=== PATIENT | female | born 1980 | race Caucasian/White ===

== ENCOUNTER → 2016-06-15 | Outpatient (CLI) | payer OTHER ==
--- NOTE | 2016-06-15 08:24 | US ---
EXAMINATION TYPE: US abdomen limited DATE OF EXAM: 06/15/2016 7:20 AM COMPARISON: NONE CLINICAL HISTORY: R94.5 Abn Liver Test; Large body habitus, diabetic EXAM MEASUREMENTS: Liver Length: 20.1 cm Gallbladder Wall: 0.2 cm CBD: 0.4 cm Right Kidney: 12.4 x 6.6 x 5.1 cm Pancreas: hyperechoic Liver: enlarged and fatty (hyperechoic to right renal cortex) Gallbladder: mobile, shadowing stone = 0.8 x 0.7 x 0.6cm Evidence for sonographic Emerson's sign: No CBD: wnl Right Kidney: wnl Visualized pancreas is heterogeneous without worrisome mass or ductal dilatation. Visualized liver is heterogeneously hyperechoic without suspicious intrahepatic ductal dilatation. Evaluation for focal masses is suboptimal due to the heterogeneity. Within gallbladder technologist carrillo 7 mm hyperechoic focus that is mobile and shadowing during real-time scanning consistent with gallstone. IMPRESSION: Single gallstone without secondary ultrasound evidence for acute cholecystitis. Heterogen eity of liver is likely on basis of diffuse fatty infiltration, underlying hepatocellular disease is not excluded.
== END | disposition home or self-care (01) ==
LOC: RADUSWWP 06:55
PROVIDERS: ATTEND Internal Medicine
DX: K76.89 Other specified diseases of liver (principal); K80.20 Calculus of gallbladder without cholecystitis without obstruction
CPT/HCPCS: 76705

== ENCOUNTER → 2018-06-13 | Outpatient (CLI) | payer OTHER ==
[2018-06-13 16:44] LABS: Anion Gap 10.9 mmol/L (4.00-12.00); Calcium 8.6 mg/dL (8.7-10.3); Carbon Dioxide 27.1 mmol/L (21.6-31.8); Potassium 4.1 mmol/L (3.5-5.5)
[2018-06-13 18:05] LABS: Hemoglobin A1C 9.5 % (4.0-6.0)
== END | disposition home or self-care (01) ==
LOC: LABWHC1 10:25
PROVIDERS: ATTEND Internal Medicine
DX: E11.9 Type 2 diabetes mellitus without complications (principal); I10 Essential (primary) hypertension; K21.9 Gastro-esophageal reflux disease without esophagitis
CPT/HCPCS: 36415; 80048; 83036

== ENCOUNTER → 2018-10-16 | Outpatient (CLI) | payer OTHER ==
[2018-10-16 11:57] LABS: Ionized Calcium 4.8 mg/dL (4.5-5.3)
[2018-10-16 12:19] LABS: Anisocytosis Slight; Basophils % (A) 0 %; Eosinophils # (A) 0.2 k/uL (0-0.7); Eosinophils % (A) 2 %; HCT 30.9 % (34.0-46.0); HGB 9.1 gm/dL (11.4-16.0); Hypochromasia Marked; Lymphocytes # (A) 2.2 k/uL (1.0-4.8); Lymphocytes % (A) 24 %; MCH 19.4 pg (25.0-35.0); MCHC 29.5 g/dL (31.0-37.0); Mean Platelet Volume 6.6; Microcytosis Marked; Monocytes # (A) 0.4 k/uL (0-1.0); Monocytes % (A) 4 %; Neutrophils # (A) 6.2 k/uL (1.3-7.7); Neutrophils % (A) 67 %; Platelet Count 408 k/uL (150-450); Poikilocytosis Slight; RBC 4.68 m/uL (3.80-5.40); RDW 17.3 % (11.5-15.5); WBC 9.1 k/uL (3.8-10.6)
[2018-10-16 16:03] LABS: T4, Free (Free Thyroxine) 1.1 ng/dL (0.80-1.80)
[2018-10-16 17:59] LABS: Iron Saturation 4.39 (12.00-45.00)
[2018-10-16 18:49] LABS: Hemoglobin A1C 7.7 % (4.0-6.0)
== END | disposition home or self-care (01) ==
LOC: LABWHC1 10:51
PROVIDERS: ATTEND Internal Medicine
DX: E11.9 Type 2 diabetes mellitus without complications (principal); E66.9 Obesity, unspecified; D64.9 Anemia, unspecified; R53.83 Other fatigue
CPT/HCPCS: 36415; 82330; 82607; 83036; 83540; 83550; 84439; 84443; 84481; 85025

== ENCOUNTER → 2019-09-09 | Outpatient (CLI) | payer OTHER ==
[2019-09-09 13:28] LABS: HCT 35.2 % (34.0-46.0); HGB 10.8 gm/dL (11.4-16.0); Hypochromasia Marked; MCH 23.4 pg (25.0-35.0); MCHC 30.8 g/dL (31.0-37.0); MCV 76.1 fL (80.0-100.0); Mean Platelet Volume 8.3; Microcytosis Slight; Platelet Count 357 k/uL (150-450); RBC 4.63 m/uL (3.80-5.40); RDW 15.7 % (11.5-15.5); WBC 9.3 k/uL (3.8-10.6)
[2019-09-09 18:57] LABS: % Iron Saturation 10.56 (12.00-45.00); African American GFR (CKD) 124.7 (60.0-200.0); Albumin 4.5 g/dL (3.80-4.90); Albumin/Globulin Ratio 2.05 (1.60-3.17); BUN/Creat Ratio 17.14 Ratio (12.00-20.00); Calcium 9.8 mg/dL (8.7-10.3); Globulin 2.2 g/dL (1.6-3.3); Non-African American GFR(CKD) 107.6 (60.0-200.0); Potassium 4.8 mmol/L (3.5-5.5); Total Bilirubin 0.2 mg/dL (0.2-1.2); Total Protein 6.7 g/dL (6.2-8.2)
[2019-09-09 19:04] LABS: T4, Free (Free Thyroxine) 1.2 ng/dL (0.80-1.80)
[2019-09-09 22:48] LABS: Hemoglobin A1C 7.3 % (4.0-6.0)
== END | disposition home or self-care (01) ==
LOC: LABWHC1 12:11
PROVIDERS: ATTEND Internal Medicine
DX: E11.9 Type 2 diabetes mellitus without complications (principal); R53.83 Other fatigue
CPT/HCPCS: 36415; 80053; 82607; 83036; 83540; 83550; 84439; 84443; 85027

== ENCOUNTER 2020-06-06 18:18 | Inpatient (IN) | payer OTHER ==
[2020-06-06] MEDS ORDERED: LORazepam 2 MG/ML INJ IV STA (19:54)
[2020-06-06] MEDS ORDERED: SODIUM CHLORIDE 0.9% 1,000 ML IV STA (19:54)
--- NOTE | 2020-06-06 20:04 | ED ---
SOB HPI - General Chief Complaint: Shortness of Breath Stated Complaint: Covid+, SOB Time Seen by Provider: 06/06/20 19:47 Source: patient, RN notes reviewed Mode of arrival: ambulatory Limitations: no limitations - History of Present Illness Initial Comments: This is a 40-year-old female presents emergency Department with shortness breath. Patient states she initially tested positive for Covid on 05/11/2020. Patient states she was still positive for a trip thousand 21. Patient states she's had progressive shortness of breath, chest tightness. Patient had fever or chills body aches. Patient has known diabetic on oral medications along with insulin. Patient also takes lisinopril 5 mg for hypertension, Just prior arrival. She states she's had progressive symptoms. No history of PE DVT. - Related Data Home Medications Medication Instructions Recorded Confirmed ARIPiprazole [Abilify] 5 mg PO DAILY 06/06/20 06/06/20 Ferrous Sulfate [Iron (65 MG 325 mg PO DAILY 06/06/20 06/06/20 Elemental)] Insulin Glargine,Hum.rec.anlog 80 unit SQ HS 06/06/20 06/06/20 [Lantus Solostar] Multivitamins, Thera [Multivitamin 2 tab PO DAILY 06/06/20 06/06/20 (formulary)] PARoxetine HCL [Paxil] 20 mg PO DAILY 06/06/20 06/06/20 PARoxetine HCL [Paxil] 40 mg PO DAILY 06/06/20 06/06/20 Pantoprazole [Protonix] 40 mg PO HS 06/06/20 06/06/20 cloNIDine HCL [Catapres] 0.1 mg PO HS PRN 06/06/20 06/06/20 lisinopriL [Zestril] 5 mg PO HS 06/06/20 06/06/20 metFORMIN HCL [Glucophage] 1,000 mg PO BID-W/MEALS 06/06/20 06/06/20 Allergies Allergy/AdvReac Type Severity Reaction Status Date / Time amoxicillin AdvReac Rash/Hives Verified 06/06/20 22:04 Review of Systems ROS Statement: Those systems with pertinent positive or pertinent negative responses have been documented in the HPI. ROS Other: All systems not noted in ROS Statement are negative. Past Medical History Past Medical History: Diabetes Mellitus, Hypertension History of Any Multi-Drug Resistant Organisms: None Reported Past Surgical History: Section Past Psychological History: Anxiety, Depression Smoking Status: Never smoker Past Alcohol Use History: None Reported Past Drug Use History: None Reported General Exam Limitations: no limitations General appearance: alert, in no apparent distress Head exam: Present: atraumatic, normocephalic, normal inspection Eye exam: Present: normal appearance, PERRL, EOMI. Absent: scleral icterus, conjunctival injection, periorbital swelling ENT exam: Present: normal exam, mucous membranes moist Neck exam: Present: full ROM. Absent: tenderness, meningismus, lymphadenopathy Respiratory exam: Present: normal lung sounds bilaterally. Absent: respiratory distress, wheezes, rales, rhonchi, stridor Cardiovascular Exam: Present: normal rhythm, tachycardia, normal heart sounds. Absent: systolic murmur, diastolic murmur, rubs, gallop, clicks GI/Abdominal exam: Present: soft, normal bowel sounds. Absent: distended, tenderness, guarding, rebound, rigid Neurological exam: Present: alert, oriented X3 Skin exam: Present: warm, dry, intact, normal color. Absent: rash Course Vital Signs 06/06/20 06/06/20 06/06/20 19:03 19:52 20:00 Temperature 98.5 F Pulse Rate 146 H 144 H 142 H Respiratory 24 26 H Rate Blood Pressure 162/107 199/127 199/127 O2 Sat by Pulse 93 L 96 95 Oximetry 06/06/20 06/06/20 06/06/20 20:30 21:00 21:30 Temperature Pulse Rate 135 H 135 H 138 H Respiratory Rate Blood Pressure 199/127 199/127 199/127 O2 Sat by Pulse 94 L 93 L 93 L Oximetry 06/06/20 21:45 Temperature Pulse Rate Respiratory Rate Blood Pressure 190/121 O2 Sat by Pulse Oximetry Medical Decision Making - Medical Decision Making 40-year-old female presented emergency department who shortness of breath. Patient had recent Covid. CT is negative for PE but does show bilateral infiltrates. Patient is persistently tachycardic, tachypneic and hypertensive. Patient was given multiple rounds of pain along blood pressures improving heart rate still tachycardic. Patient will be admitted for further evaluation. - Lab Data Result diagrams: 06/06/20 20:04 06/06/20 20:04 Lab Results 06/06/20 06/06/20 06/06/20 Range/Units 20:04 20:04 20:04 WBC 10.6 (3.8-10.6) k/uL RBC 4.65 (3.80-5.40) m/uL Hgb 10.4 L (11.4-16.0) gm/dL Hct 34.6 (34.0-46.0) % MCV 74.4 L (80.0-100.0) fL MCH 22.4 L (25.0-35.0) pg MCHC 30.1 L (31.0-37.0) g/dL RDW 17.6 H (11.5-15.5) % Plt Count 334 (150-450) k/uL MPV 7.5 Neutrophils % 80 % Lymphocytes % 13 % Monocytes % 4 % Eosinophils % 2 % Basophils % 0 % Neutrophils # 8.4 H (1.3-7.7) k/uL Lymphocytes # 1.4 (1.0-4.8) k/uL Monocytes # 0.4 (0-1.0) k/uL Eosinophils # 0.2 (0-0.7) k/uL Basophils # 0.0 (0-0.2) k/uL Hypochromasia Marked Poikilocytosis Slight Anisocytosis Slight Microcytosis Moderate PT 10.0 (9.0-12.0) sec INR 0.9 (<1.2) APTT 21.1 L (22.0-30.0) sec D-Dimer 1.07 H (<0.60) mg/L FEU Sodium 136 L (137-145) mmol/L Potassium 4.9 (3.5-5.1) mmol/L Chloride 100 (98-107) mmol/L Carbon Dioxide 29 (22-30) mmol/L Anion Gap 7 mmol/L BUN 13 (7-17) mg/dL Creatinine 0.62 (0.52-1.04) mg/dL Est GFR (CKD-EPI)AfAm >90 (>60 ml/min/1.73 sqM) Est GFR (CKD-EPI)NonAf >90 (>60 ml/min/1.73 sqM) Glucose 203 H (74-99) mg/dL Lactic Ac Sepsis Rflx Plasma Lactic Acid Murtaza (0.7-2.0) mmol/L Calcium 9.6 (8.4-10.2) mg/dL Magnesium 1.2 L (1.6-2.3) mg/dL Total Bilirubin 0.4 (0.2-1.3) mg/dL AST 21 (14-36) U/L ALT 12 (4-34) U/L Alkaline Phosphatase 81 (38-126) U/L Troponin I (0.000-0.034) ng/mL NT-Pro-B Natriuret Pep pg/mL Total Protein 6.4 (6.3-8.2) g/dL Albumin 3.9 (3.5-5.0) g/dL 06/06/20 06/06/20 06/06/20 Range/Units 20:04 20:04 20:04 WBC (3.8-10.6) k/uL RBC (3.80-5.40) m/uL Hgb (11.4-16.0) gm/dL Hct (34.0-46.0) % MCV (80.0-100.0) fL MCH (25.0-35.0) pg MCHC (31.0-37.0) g/dL RDW (11.5-15.5) % Plt Count (150-450) k/uL MPV Neutrophils % % Lymphocytes % % Monocytes % % Eosinophils % % Basophils % % Neutrophils # (1.3-7.7) k/uL Lymphocytes # (1.0-4.8) k/uL Monocytes # (0-1.0) k/uL Eosinophils # (0-0.7) k/uL Basophils # (0-0.2) k/uL Hypochromasia Poikilocytosis Anisocytosis Microcytosis PT (9.0-12.0) sec INR (<1.2) APTT (22.0-30.0) sec D-Dimer (<0.60) mg/L FEU Sodium (137-145) mmol/L Potassium (3.5-5.1) mmol/L Chloride (98-107) mmol/L Carbon Dioxide (22-30) mmol/L Anion Gap mmol/L BUN (7-17) mg/dL Creatinine (0.52-1.04) mg/dL Est GFR (CKD-EPI)AfAm (>60 ml/min/1.73 sqM) Est GFR (CKD-EPI)NonAf (>60 ml/min/1.73 sqM) Glucose (74-99) mg/dL Lactic Ac Sepsis Rflx Plasma Lactic Acid Murtaza 2.5 H* (0.7-2.0) mmol/L Calcium (8.4-10.2) mg/dL Magnesium (1.6-2.3) mg/dL Total Bilirubin (0.2-1.3) mg/dL AST (14-36) U/L ALT (4-34) U/L Alkaline Phosphatase (38-126) U/L Troponin I <0.012 (0.000-0.034) ng/mL NT-Pro-B Natriuret Pep 625 pg/mL Total Protein (6.3-8.2) g/dL Albumin (3.5-5.0) g/dL 06/06/20 Range/Units 20:26 WBC (3.8-10.6) k/uL RBC (3.80-5.40) m/uL Hgb (11.4-16.0) gm/dL Hct (34.0-46.0) % MCV (80.0-100.0) fL MCH (25.0-35.0) pg MCHC (31.0-37.0) g/dL RDW (11.5-15.5) % Plt Count (150-450) k/uL MPV Neutrophils % % Lymphocytes % % Monocytes % % Eosinophils % % Basophils % % Neutrophils # (1.3-7.7) k/uL Lymphocytes # (1.0-4.8) k/uL Monocytes # (0-1.0) k/uL Eosinophils # (0-0.7) k/uL Basophils # (0-0.2) k/uL Hypochromasia Poikilocytosis Anisocytosis Microcytosis PT (9.0-12.0) sec INR (<1.2) APTT (22.0-30.0) sec D-Dimer (<0.60) mg/L FEU Sodium (137-145) mmol/L Potassium (3.5-5.1) mmol/L Chloride (98-107) mmol/L Carbon Dioxide (22-30) mmol/L Anion Gap mmol/L BUN (7-17) mg/dL Creatinine (0.52-1.04) mg/dL Est GFR (CKD-EPI)AfAm (>60 ml/min/1.73 sqM) Est GFR (CKD-EPI)NonAf (>60 ml/min/1.73 sqM) Glucose (74-99) mg/dL Lactic Ac Sepsis Rflx Y Plasma Lactic Acid Murtaza (0.7-2.0) mmol/L Calcium (8.4-10.2) mg/dL Magnesium (1.6-2.3) mg/dL Total Bilirubin (0.2-1.3) mg/dL AST (14-36) U/L ALT (4-34) U/L Alkaline Phosphatase (38-126) U/L Troponin I (0.000-0.034) ng/mL NT-Pro-B Natriuret Pep pg/mL Total Protein (6.3-8.2) g/dL Albumin (3.5-5.0) g/dL - EKG Data -: EKG Interpreted by Me EKG Comments: EKG #19:16 sinus tachycardia rate of 137 MA 128 QRS 86 QT/QTC 370/558 Disposition Clinical Impression: Dyspnea, Pneumonia due to COVID-19 virus, Tachycardia with hypertension Disposition: ADMITTED IP TO THIS HOSP Condition: Fair Referrals: Manish Light MD [Primary Care Provider] - 1-2 days
[2020-06-06 20:14] LABS: Anisocytosis Slight; Basophils % (A) 0 %; Eosinophils # (A) 0.2 k/uL (0-0.7); Eosinophils % (A) 2 %; HCT 34.6 % (34.0-46.0); HGB 10.4 gm/dL (11.4-16.0); Hypochromasia Marked; Lymphocytes # (A) 1.4 k/uL (1.0-4.8); Lymphocytes % (A) 13 %; MCH 22.4 pg (25.0-35.0); MCHC 30.1 g/dL (31.0-37.0); MCV 74.4 fL (80.0-100.0); Mean Platelet Volume 7.5; Microcytosis Moderate; Monocytes # (A) 0.4 k/uL (0-1.0); Monocytes % (A) 4 %; Neutrophils # (A) 8.4 k/uL (1.3-7.7); Neutrophils % (A) 80 %; Platelet Count 334 k/uL (150-450); Poikilocytosis Slight; RBC 4.65 m/uL (3.80-5.40); RDW 17.6 % (11.5-15.5); WBC 10.6 k/uL (3.8-10.6)
[2020-06-06 20:22] LABS: ALT 12 U/L (4-34); AST 21 U/L (14-36); African American GFR (CKD) >90 (>60 ml/min/1.73 sqM); Albumin 3.9 g/dL (3.5-5.0); Alkaline Phosphatase 81 U/L (38-126); Anion Gap 7 mmol/L; Blood Urea Nitrogen 13 mg/dL (7-17); Calcium 9.6 mg/dL (8.4-10.2); Carbon Dioxide 29 mmol/L (22-30); Chloride 100 mmol/L (98-107); Glucose 203 mg/dL (74-99); Magnesium 1.2 mg/dL (1.6-2.3); Non-African American GFR(CKD) >90 (>60 ml/min/1.73 sqM); Potassium 4.9 mmol/L (3.5-5.1); Sodium 136 mmol/L (137-145); Total Bilirubin 0.4 mg/dL (0.2-1.3); Total Protein 6.4 g/dL (6.3-8.2)
[2020-06-06 20:59] LABS: INR 0.9 (<1.2)
[2020-06-06 21:38] LABS: D-Dimer 1.07 mg/L FEU (<0.60); Partial Thromboplastin Time 21.1 sec (22.0-30.0)
--- NOTE | 2020-06-06 21:54 | XR ---
EXAMINATION TYPE: XR chest 2V DATE OF EXAM: 06/06/2020 CLINICAL HISTORY: shortness of breath. TECHNIQUE: Frontal and lateral view of the chest. COMPARISON: None FINDINGS: Cardiomegaly. Diffuse multifocal hazy opacities of the bilateral lungs. No pleural effusion or pneumothorax seen. Degenerative changes of the spine.. IMPRESSION: Cardiomegaly. Diffuse multifocal hazy airspace opacities may represent interstitial smita a versus atypical pneumonitis including Covid 19.
[2020-06-06] MEDS ORDERED: LABETALOL 5 MG/ML VIAL MDV IVP STA ×3 (22:16→22:36)
--- NOTE | 2020-06-06 22:27 | CT ---
EXAMINATION TYPE: CT chest angio for PE DATE OF EXAM: 06/06/2020 COMPARISON: None HISTORY: SOB, elevated d-dimer, +covid CT DLP: 975 mGycm Automated exposure control for dose reduction was used. CONTRAST: Performed with IV Contrast, patient injected with 100 mL of Isovue 370. Images obtained from the thoracic inlet to the diaphragm with IV contrast. There are 3-D post process ed images. There is patchy pulmonary interstitial and to a lesser extent airspace infiltrates bilaterally. Heart appears enlarged. There is no pericardial effusion. There is no pleural effusion. There is some fatt y infiltration of the liver. There are no hilar masses. There is no evidence of aortic aneurysm or dissection. There are mediastin al multiple lymph nodes that measure up to 1.5 cm in the paratracheal region. These are likely inflam matory. I see no evidence of filling defect in the pulmonary arteries. The thoracic spine is intact. There is no compression fracture. I see no bony destructive process. IMPRESSION: No evidence of pulmonary embolism. Pulmonary interstitial and airspace bilateral infiltrates with cardiomegaly. No pleural fluid seen to suggest heart failure.
[2020-06-06] MEDS ORDERED: ONDANSETRON 4 MG/2 ML VIAL IVP PRN (22:43)
[2020-06-06] MEDS ORDERED: NALOXONE 0.4 MG/ML 1 ML VIAL IV PRN (22:43)
[2020-06-06] MEDS ORDERED: LABETALOL 5 MG/ML VIAL MDV IVP PRN (22:44)
[2020-06-06] MEDS: SODIUM CHLORIDE 0.9% 1,000 ML IV SCH (22:47)
[2020-06-07] MEDS ORDERED: LABETALOL 5 MG/ML VIAL MDV IVP STA (00:59)
[2020-06-07] MEDS: INSULIN ASPART (NovoLOG) 100 UNIT/ML VIAL SQ SCH ×4 (07:30→20:37)
[2020-06-07 07:56] LABS: Glucose,Whole Blood 111 mg/dL (75-99)
[2020-06-07] MEDS ORDERED: cloNIDine HCL 0.1 MG TAB PO PRN (08:17)
[2020-06-07] MEDS ORDERED: hydrALAZINE HCL 25 MG TAB PO PRN (10:26)
[2020-06-07 10:28] LABS: Anisocytosis Slight; Basophils % (A) 0 %; Eosinophils # (A) 0.2 k/uL (0-0.7); Eosinophils % (A) 2 %; HCT 30.4 % (34.0-46.0); HGB 9.8 gm/dL (11.4-16.0); Hypochromasia Moderate; Lymphocytes # (A) 1.9 k/uL (1.0-4.8); Lymphocytes % (A) 20 %; MCH 23.7 pg (25.0-35.0); MCHC 32.3 g/dL (31.0-37.0); MCV 73.5 fL (80.0-100.0); Mean Platelet Volume 7.1; Microcytosis Moderate; Monocytes # (A) 0.4 k/uL (0-1.0); Monocytes % (A) 5 %; Neutrophils # (A) 6.7 k/uL (1.3-7.7); Neutrophils % (A) 72 %; Platelet Count 264 k/uL (150-450); Poikilocytosis Slight; RBC 4.13 m/uL (3.80-5.40); RDW 17.8 % (11.5-15.5); WBC 9.3 k/uL (3.8-10.6)
[2020-06-07] MEDS ORDERED: metFORMIN 500 MG TAB PO SCH (10:30)
[2020-06-07] MEDS: PARoxetine 20 MG TAB PO SCH ×2 (10:52→10:53)
[2020-06-07] MEDS: FERROUS SULFATE 325 MG TAB PO SCH (10:53)
[2020-06-07] MEDS: MULTIVITAMINS, THERA 1 EACH TAB PO SCH (10:53)
[2020-06-07] MEDS ORDERED: lisinopriL 5 MG TAB PO STA (10:54)
[2020-06-07 11:00] LABS: African American GFR (CKD) >90 (>60 ml/min/1.73 sqM); Anion Gap 7 mmol/L; Blood Urea Nitrogen 12 mg/dL (7-17); C Reactive Protein 4.2 mg/dL (<1.0); Carbon Dioxide 26 mmol/L (22-30); Chloride 101 mmol/L (98-107); Glucose 154 mg/dL (74-99); LDH 304 U/L (313-618); Magnesium 1.3 mg/dL (1.6-2.3); Non-African American GFR(CKD) >90 (>60 ml/min/1.73 sqM); Potassium 4.3 mmol/L (3.5-5.1); Sodium 134 mmol/L (137-145)
[2020-06-07] MEDS ORDERED: Magnesium Replacement Protocol 1 EACH MISC MISCELLANE PRN (11:22)
--- NOTE | 2020-06-07 11:26 | P.HPIM ---
History of Present Illness This is a pleasant 40 years old female with past medical history of diabetes mellitus, hypertension. She is a patient of Dr. Cesar, she follows up with see him in [place] for her mental health. She presents because of dyspnea especially with exertion and walking for the last 1 week associated with a dry cough and more nasal congestion and sneezing but no sore throat. She denies chest pain, she also complaining of from diarrhea about 4-5 times last night, bowel movement was soft but not watery. No nausea vomiting, no abdominal pain but she has low appetite She denies any urinary symptoms. No dysuria, no urgency or hesitancy. Patient states she was tested positive for covid, 05/11 and 05/26 .she denies a smoking, alcohol or illicit drug She feels some snugness but denies suicidal or homicidal ideation. Patient is tachycardic 106-112, tachypneic 22-26, blood pressure is a stable and she is saturating 94% on 2 L oxygen via nasal cannula. Patient is afebrile. On presentation her blood pressure was elevated 199/127 CBC is unremarkable except for mild anemia with hemoglobin 10.4, INR is 0.9, d- dimer is mildly elevated at 1.0. BMP and liver enzymes are unremarkable, but is a small 1.2, troponin is negative less than 0.012. ProBNP is 625. EKG showing sinus tachycardia at [address]-T changes and QTC is 558. CTA of the chest: No pulmonary embolism, bilateral interstitial pulmonary disease In the emergency room patient was started on normal saline at 75 mL/h and she received several doses of labetalol 200 mg. Senior Medical Director has been consulted from emergency room Review of Systems CONSTITUTIONAL: No fever, no malaise, no fatigue. HEENT: No recent visual problems or hearing problems. Denied any sore throat. CARDIOVASCULAR: No orthopnea, PND, no palpitations, no syncope. PULMONARY: No chest wall tenderness, no hemoptysis. GASTROINTESTINAL: No diarrhea, no nausea, no vomiting, no abdominal pain. Normoactive bowel sounds. NEUROLOGICAL: No headaches, no weakness, no numbness. HEMATOLOGICAL: Denies any bleeding or petechiae. GENITOURINARY: Denies any burning micturition, frequency, or urgency. MUSCULOSKELETAL/RHEUMATOLOGICAL: Denies any joint pain, swelling, or any muscle pain. ENDOCRINE: Denies any polyuria or polydipsia. Past Medical History Past Medical History: Diabetes Mellitus, Hypertension History of Any Multi-Drug Resistant Organisms: None Reported Past Surgical History: Section Past Psychological History: Anxiety, Depression Smoking Status: Never smoker Past Alcohol Use History: None Reported Past Drug Use History: None Reported Medications and Allergies Home Medications Medication Instructions Recorded Confirmed Type ARIPiprazole [Abilify] 5 mg PO DAILY 06/06/20 06/06/20 History Ferrous Sulfate [Iron (65 MG 325 mg PO DAILY 06/06/20 06/06/20 History Elemental)] Insulin Glargine,Hum.rec.anlog 80 unit SQ HS 06/06/20 06/06/20 History [Lantus Solostar] Multivitamins, Thera [Multivitamin 2 tab PO DAILY 06/06/20 06/06/20 History (formulary)] PARoxetine HCL [Paxil] 20 mg PO DAILY 06/06/20 06/06/20 History PARoxetine HCL [Paxil] 40 mg PO DAILY 06/06/20 06/06/20 History Pantoprazole [Protonix] 40 mg PO HS 06/06/20 06/06/20 History cloNIDine HCL [Catapres] 0.1 mg PO HS PRN 06/06/20 06/06/20 History lisinopriL [Zestril] 5 mg PO HS 06/06/20 06/06/20 History metFORMIN HCL [Glucophage] 1,000 mg PO BID-W/MEALS 06/06/20 06/06/20 History Allergies Allergy/AdvReac Type Severity Reaction Status Date / Time amoxicillin AdvReac Rash/Hives Verified 06/06/20 22:04 Physical Exam Vitals: Vital Signs Temp Pulse Pulse Resp BP Pulse Ox 06/07/20 07:32 107 H 06/07/20 07:23 106 H 22 139/96 94 L 06/07/20 06:48 97.4 F L 112 H 26 H 161/122 93 L 06/07/20 02:30 112 H 06/07/20 02:00 114 H 150/83 06/07/20 01:30 111 H 185/117 06/07/20 01:00 120 H 184/115 06/07/20 00:30 120 H 143/100 06/07/20 00:00 120 H 181/110 06/06/20 23:30 121 H 146/111 06/06/20 23:22 118 H 146/111 06/06/20 23:00 197/112 06/06/20 22:30 122 H 181/108 92 L 06/06/20 22:00 138 H 190/121 93 L 06/06/20 21:45 190/121 06/06/20 21:30 138 H 199/127 93 L 06/06/20 21:00 135 H 199/127 93 L 06/06/20 20:30 135 H 199/127 94 L 06/06/20 20:00 142 H 199/127 95 06/06/20 19:52 144 H 26 H 199/127 96 06/06/20 19:03 98.5 F 146 H 24 162/107 93 L Intake and Output 06/06/20 06/07/20 06/07/20 22:59 06:59 14:59 Other: Weight 113.398 kg -GENERAL: The patient is alert and oriented x3, not in any acute distress. obese HEENT: Pupils are round and equally reacting to light. EOMI. No scleral icterus. No conjunctival pallor. Normocephalic, atraumatic. No pharyngeal erythema. No thyromegaly. CARDIOVASCULAR: S1 and S2 present. No murmurs, rubs, or gallops. PULMONARY: Chest is clear to auscultation, no wheezing or crackles. ABDOMEN: Soft, nontender, nondistended, normoactive bowel sounds. No palpable organomegaly. MUSCULOSKELETAL: No joint swelling or deformity. EXTREMITIES: No cyanosis, clubbing, or pedal edema. NEUROLOGICAL: Gross neurological examination did not reveal any focal deficits. SKIN: No rashes. No petechiae Results CBC & Chem 7: 06/07/20 10:04 06/07/20 10:04 Labs: Abnormal Lab Results - Last 24 Hours (Table) 06/06/20 06/06/20 06/06/20 Range/Units 20:04 20:04 20:04 Hgb 10.4 L (11.4-16.0) gm/dL MCV 74.4 L (80.0-100.0) fL MCH 22.4 L (25.0-35.0) pg MCHC 30.1 L (31.0-37.0) g/dL RDW 17.6 H (11.5-15.5) % Neutrophils # 8.4 H (1.3-7.7) k/uL APTT 21.1 L (22.0-30.0) sec D-Dimer 1.07 H (<0.60) mg/L FEU Sodium 136 L (137-145) mmol/L Glucose 203 H (74-99) mg/dL POC Glucose (mg/dL) (75-99) mg/dL Plasma Lactic Acid Murtaza (0.7-2.0) mmol/L Magnesium 1.2 L (1.6-2.3) mg/dL 06/06/20 06/06/20 06/07/20 Range/Units 20:04 23:15 07:29 Hgb (11.4-16.0) gm/dL MCV (80.0-100.0) fL MCH (25.0-35.0) pg MCHC (31.0-37.0) g/dL RDW (11.5-15.5) % Neutrophils # (1.3-7.7) k/uL APTT (22.0-30.0) sec D-Dimer (<0.60) mg/L FEU Sodium (137-145) mmol/L Glucose (74-99) mg/dL POC Glucose (mg/dL) 111 H (75-99) mg/dL Plasma Lactic Acid Murtaza 2.5 H* 3.7 H* (0.7-2.0) mmol/L Magnesium (1.6-2.3) mg/dL Assessment and Plan Assessment: acute Bilateral interstitial pneumonia, mostly secondary to acute covid pneumonia Acute hypoxic respiratory failure Hypertension, with urgency . Present on admission Diabetes Mellitus, type II Morbid obesity with BMI of 44.3 Plan: Is a pleasant 40 years old female who presents with bilateral Covid pneumonia and hypertension urgency, continue with current antihypertensive medication, hydralazine as needed, cardiology consult. Pulmonary consult Labs and medication were reviewed.. Continue same treatment. Continue with symptomatic treatment. Resume home medication. Monitor lytes and vitals. DVT and GI prophylaxis. Further recommendations depends on the clinical course of the patient DVT prophylaxis: Subcutaneous Lovenox GI Prophylaxis: Pepcid Prognosis is guarded
[2020-06-07 11:40] LABS: HCG,Qualitative Serum Not Detected
[2020-06-07] MEDS: ARIPiprazole 5 MG TAB PO SCH (11:50)
[2020-06-07] MEDS: METOPROLOL TARTRATE 50 MG TAB PO SCH ×2 (11:50→20:30)
--- NOTE | 2020-06-07 11:52 | P.CRDCN ---
History of Present Illness Consult date: 06/07/20 History of present illness: HISTORY OF PRESENT ILLNESS: This is a 40-year-old female with a past medical history significant for hypertension, diabetes, anxiety and depression. Patient does not follow with a roller hand. We have been asked to see the patient in consultation for tachycardia and hypertension. Patient examined at the bedside in the emergency room. Patient states she has been feeling short of breath for approximately one week. She also reports having a cough for the past week. She denies having a fever but she does report having chills the other day. Patient states yesterday when she was walking to the bathroom or shortness of breath got worse which propped her to come to the emergency room. She denies chest pain or pressure. She does report some discomfort with deep breathing. Patient's blood pressure was noted to be elevated upon arrival to the emergency room with a systolic in the 190s. Patient was also tachycardic with a heart rate in the 140s. Patient is prescribed lisinopril on an outpatient basis. She is also prescribed clonidine which she states she uses most nights out of the week to help her sl eep. Patient does not check her blood pressure at home. She denies any history of smoking or alcohol use. She denies a family history of coronary artery disease. EKG reveals sinus tachycardia with no signs of acute ischemia Chest xray cardiomegaly. Diffuse multifocal hazy airspace opacities may represent interstitial edema versus atypical pneumonitis Laboratory data: WBC 9.3. Hemoglobin 9.8. Platelet count 264. Sodium 134. Potassium 4.3. BUN 12. Creatinine 0.59. Lactic acid 3.7. Repeat 1.7. Troponin negative 1. Current home cardiac medications include lisinopril 5 mg at night REVIEW OF SYSTEMS: At the time of my exam: CONSTITUTIONAL: Denies fever or chills. HEENT: Denies blurred vision, vision changes, or eye pain. Denies hemoptysis CARDIOVASCULAR: Denies chest pain. Denies orthopnea. Denies PND. Denies palpitations RESPIRATORY: Reports shortness of breath. Reports discomfort with deep inspiration. GASTROINTESTINAL: Denies abdominal pain. Denies nausea or vomiting. HEMATOLOGIC: Denies bleeding disorders. GENITOURINARY: Denies any blood in urine. SKIN: Denies pruitis. Denies rash. PHYSICAL EXAM: VITAL SIGNS: Reviewed. GENERAL: Well-developed in no acute distress. HEENT: Head is normocephalic. Pupils are equal, round. Sclerae anicteric. Mucous membranes of the mouth are moist. Neck supple. No JVD or thyromegaly LUNGS: Respirations even and unlabored. Lungs diminished bilaterally. HEART: Tachycardic. Regular rate and rhythm. S1 and S2 heard. ABDOMEN: Soft. Nondistended. Nontender. EXTREMITIES: Normal range of motion. No clubbing or cyanosis. Peripheral pulses intact. No lower extremity edema NEUROLOGIC: Awake and alert. Oriented x 3. ASSESSMENT: Covid 19 Shortness of breath, secondary to above Tachycardia Hypertension Diabetes Mellitus Anxiety Depression PLAN: Obtain 2-D echo to assess cardiac structure and function Tachycardia and hypertension likely related to acute illness of Covid 19 and anxiety Begin metoprolol 50mg PO BID Give 5mg lisinopril now. Patient to receive 5mg tonight. Then will begin lisinopril 10mg at HS starting 06/08/2020 Further recommendations pending patient course Nurse practitioner note has been reviewed by physician. Signing provider agrees with the documented findings, assessment, and plan of care. Past Medical History Past Medical History: Diabetes Mellitus, Hypertension History of Any Multi-Drug Resistant Organisms: None Reported Past Surgical History: Section Past Psychological History: Anxiety, Depression Smoking Status: Never smoker Past Alcohol Use History: None Reported Past Drug Use History: None Reported Medications and Allergies Home Medications Medication Instructions Recorded Confirmed Type ARIPiprazole [Abilify] 5 mg PO DAILY 06/06/20 06/06/20 History Ferrous Sulfate [Iron (65 MG 325 mg PO DAILY 06/06/20 06/06/20 History Elemental)] Insulin Glargine,Hum.rec.anlog 80 unit SQ HS 06/06/20 06/06/20 History [Lantus Solostar] Multivitamins, Thera [Multivitamin 2 tab PO DAILY 06/06/20 06/06/20 History (formulary)] PARoxetine HCL [Paxil] 20 mg PO DAILY 06/06/20 06/06/20 History PARoxetine HCL [Paxil] 40 mg PO DAILY 06/06/20 06/06/20 History Pantoprazole [Protonix] 40 mg PO HS 06/06/20 06/06/20 History cloNIDine HCL [Catapres] 0.1 mg PO HS PRN 06/06/20 06/06/20 History lisinopriL [Zestril] 5 mg PO HS 06/06/20 06/06/20 History metFORMIN HCL [Glucophage] 1,000 mg PO BID-W/MEALS 06/06/20 06/06/20 History Allergies Allergy/AdvReac Type Severity Reaction Status Date / Time amoxicillin AdvReac Rash/Hives Verified 06/06/20 22:04 Physical Exam Vitals: Vital Signs Temp Pulse Pulse Resp BP Pulse Ox 06/07/20 10:18 109 H 20 154/94 93 L 06/07/20 07:32 107 H 06/07/20 07:23 106 H 22 139/96 94 L 06/07/20 06:48 97.4 F L 112 H 26 H 161/122 93 L 06/07/20 02:30 112 H 06/07/20 02:00 114 H 150/83 06/07/20 01:30 111 H 185/117 06/07/20 01:00 120 H 184/115 06/07/20 00:30 120 H 143/100 06/07/20 00:00 120 H 181/110 06/06/20 23:30 121 H 146/111 06/06/20 23:22 118 H 146/111 06/06/20 23:00 197/112 06/06/20 22:30 122 H 181/108 92 L 06/06/20 22:00 138 H 190/121 93 L 06/06/20 21:45 190/121 06/06/20 21:30 138 H 199/127 93 L 06/06/20 21:00 135 H 199/127 93 L 06/06/20 20:30 135 H 199/127 94 L 06/06/20 20:00 142 H 199/127 95 06/06/20 19:52 144 H 26 H 199/127 96 06/06/20 19:03 98.5 F 146 H 24 162/107 93 L Intake and Output 06/06/20 06/07/20 06/07/20 22:59 06:59 14:59 Other: Weight 113.398 kg Results 06/07/20 10:04 06/07/20 10:04 Cardiac Enzymes 06/06/20 06/06/20 06/07/20 Range/Units 20:04 20:04 10:04 AST 21 (14-36) U/L Lactate Dehydrogenase 304 L (313-618) U/L Troponin I <0.012 (0.000-0.034) ng/mL Coagulation 06/06/20 Range/Units 20:04 PT 10.0 (9.0-12.0) sec APTT 21.1 L (22.0-30.0) sec CBC 06/06/20 06/07/20 Range/Units 20:04 10:04 WBC 10.6 9.3 (3.8-10.6) k/uL RBC 4.65 4.13 (3.80-5.40) m/uL Hgb 10.4 L 9.8 L (11.4-16.0) gm/dL Hct 34.6 30.4 L (34.0-46.0) % Plt Count 334 264 (150-450) k/uL Comprehensive Metabolic Panel 06/06/20 06/07/20 Range/Units 20:04 10:04 Sodium 136 L 134 L (137-145) mmol/L Potassium 4.9 4.3 (3.5-5.1) mmol/L Chloride 100 101 (98-107) mmol/L Carbon Dioxide 29 26 (22-30) mmol/L BUN 13 12 (7-17) mg/dL Creatinine 0.62 0.59 (0.52-1.04) mg/dL Glucose 203 H 154 H (74-99) mg/dL Calcium 9.6 9.0 (8.4-10.2) mg/dL AST 21 (14-36) U/L ALT 12 (4-34) U/L Alkaline Phosphatase 81 (38-126) U/L Total Protein 6.4 (6.3-8.2) g/dL Albumin 3.9 (3.5-5.0) g/dL Current Medications Generic Name Dose Route Start Last Admin Trade Name Freq PRN Reason Stop Dose Admin Acetaminophen 650 mg 06/06/20 22:43 Acetaminophen Tab 325 Mg Tab PO Q6HR PRN Mild Pain or Fever > 100.5 Aripiprazole 5 mg 06/07/20 10:30 Aripiprazole 5 Mg Tab PO DAILY [facility]UE Clonidine 0.1 mg 06/07/20 08:17 Clonidine Hcl 0.1 Mg Tab PO HS PRN Insomnia Ferrous Sulfate 325 mg 06/07/20 10:30 06/07/20 10:53 Ferrous Sulfate 325 Mg Tab PO 325 mg DAILY SUE Administration Hydralazine HCl 25 mg 06/07/20 10:26 Hydralazine Hcl 25 Mg Tab PO QID PRN Blood Pressure - High Sodium Chloride 1,000 mls @ 75 mls/hr 06/06/20 22:45 06/06/20 22:47 Saline 0.9% IV 75 mls/hr .[id number] SUE Administration Insulin Aspart 0 unit 06/07/20 07:30 06/07/20 07:30 Insulin Aspart (Novolog) 100 Unit/Ml Vial SQ Not Given ACHS [facility] Protocol Insulin Detemir 80 unit 06/07/20 21:00 Insulin Detemir (Levemir) 100 Unit/Ml Syr SQ HS [facility] Labetalol HCl 20 mg 06/06/20 22:44 06/07/20 06:51 Labetalol 5 Mg/Ml Vial Mdv IVP 20 mg Q3HR PRN Administration Hypertension Lisinopril 5 mg 06/07/20 21:00 Lisinopril 5 Mg Tab PO HS [facility] Metformin HCl 1,000 mg 06/07/20 10:30 06/07/20 10:50 Metformin 500 Mg Tab PO Not Given BID-W/MEALS [facility] Metoprolol Tartrate 50 mg 06/07/20 11:00 Metoprolol Tartrate 50 Mg Tab PO BID [facility] Miscellaneous Information 1 each 06/07/20 11:22 Magnesium Replacement Protocol 1 Each Misc MISCELLANE DAILY PRN Per Protocol Protocol Multivitamins 2 each 06/07/20 10:30 06/07/20 10:53 Multivitamins, Thera 1 Each Tab PO 2 each DAILY [facility] Administration Naloxone HCl 0.2 mg 06/06/20 22:43 Naloxone 0.4 Mg/Ml 1 Ml Vial IV Q2M PRN Opioid Reversal Ondansetron HCl 4 mg 06/06/20 22:43 Ondansetron 4 Mg/2 Ml Vial IVP Q8HR PRN Nausea And Vomiting Pantoprazole Sodium 40 mg 06/07/20 21:00 Pantoprazole 40 Mg Tablet PO HS [facility] Paroxetine HCl 20 mg 06/07/20 10:30 06/07/20 10:53 Paroxetine 20 Mg Tab PO 20 mg DAILY [facility]UE Administration Paroxetine HCl 40 mg 06/07/20 10:30 06/07/20 10:52 Paroxetine 20 Mg Tab PO 40 mg DAILY SUE Administration Intake and Output 06/06/20 06/07/20 06/07/20 22:59 06:59 14:59 Other: Weight 113.398 kg 06/07/20 10:04 06/07/20 10:04
[2020-06-07 12:02] LABS: Glucose,Whole Blood 143 mg/dL (75-99)
[2020-06-07] MEDS: SODIUM CHLORIDE 0.9% 1,000 ML IV SCH (13:16)
[2020-06-07] MEDS: MAGNESIUM SULFATE-D5W PMX 1 GM in DEXTROSE/WATER 1 100ML.BAG IVPB SCH ×3 (13:16→17:23)
[2020-06-07] MEDS: ACETAMINOPHEN TAB 325 MG TAB PO PRN (13:33)
--- NOTE | 2020-06-07 16:47 | P.CNPUL ---
History of Present Illness Consult date: 06/07/20 Requesting physician: Cathleen Sow Reason for consult: dyspnea, cough Chief complaint: Shortness of breath on exertion History of present illness: This is a 40-year-old female with history of multiple medical problems including hypertension, diabetes, patient has been ill for almost 3-4 weeks. She tested positive for COVID-19 infection on 05/11, and again on 05/26. Patient had full classic symptoms of COVID-19 infection including aches and pains, loss of sensation of taste and smell, diarrhea, cough, shortness of breath. Patient did not require hospital admission, she managed to do well over the last 3-4 weeks, patient presented to the ER yesterday with symptoms of shortness of breath on exertion. Continues to have intermittent episodes of cough, weakness, CT angiogram of the chest was negative for thromboembolic disease/pulmonary embolism, however it showed bilateral patchy infiltrates consistent with recent COVID-19 pneumonia. Patient was admitted, she has O2 sats of 94% on room air, doing well at rest, she has mostly shortness of breath on exertion. Patient was also noted to have elevated blood pressure and tachycardia, and that is being addressed by cardiology on the case. Pulmonary-hurst the patient seems to be very comfortable, and not in any distress at present. Obviously the patient is out of the window for any of the treatments we use for COVID-19 infection, and as far as I'm concerned, the patient does not need to be in the hospital, she could be managed on outpatient basis knowing that she had no evidence of pulmonary embolism, and she is maintaining adequate O2 saturation on room air. Review of Systems CONSTITUTIONAL: No fever no chills, but she has some weakness and fatigue.. HEENT: No recent visual problems or hearing problems. Denied any sore throat. CARDIOVASCULAR: No orthopnea, PND, no palpitations, no syncope. PULMONARY: Shortness of breath on exertion. Occasional cough. GASTROINTESTINAL: Negative. NEUROLOGICAL: Negative. HEMATOLOGICAL: Denies any bleeding or petechiae. GENITOURINARY: Negative. MUSCULOSKELETAL/RHEUMATOLOGICAL: Negative. ENDOCRINE: Negative. Past Medical History Past Medical History: Diabetes Mellitus, Hypertension History of Any Multi-Drug Resistant Organisms: None Reported Past Surgical History: Section Past Anesthesia/Blood Transfusion Reactions: No Reported Reaction Past Psychological History: Anxiety, Depression Smoking Status: Never smoker Past Alcohol Use History: None Reported Past Drug Use History: None Reported Medications and Allergies Home Medications Medication Instructions Recorded Confirmed Type ARIPiprazole [Abilify] 5 mg PO DAILY 06/06/20 06/06/20 History Ferrous Sulfate [Iron (65 MG 325 mg PO DAILY 06/06/20 06/06/20 History Elemental)] Insulin Glargine,Hum.rec.anlog 80 unit SQ HS 06/06/20 06/06/20 History [Lantus Solostar] Multivitamins, Thera [Multivitamin 2 tab PO DAILY 06/06/20 06/06/20 History (formulary)] PARoxetine HCL [Paxil] 20 mg PO DAILY 06/06/20 06/06/20 History PARoxetine HCL [Paxil] 40 mg PO DAILY 06/06/20 06/06/20 History Pantoprazole [Protonix] 40 mg PO HS 06/06/20 06/06/20 History cloNIDine HCL [Catapres] 0.1 mg PO HS PRN 06/06/20 06/06/20 History lisinopriL [Zestril] 5 mg PO HS 06/06/20 06/06/20 History metFORMIN HCL [Glucophage] 1,000 mg PO BID-W/MEALS 06/06/20 06/06/20 History Allergies Allergy/AdvReac Type Severity Reaction Status Date / Time amoxicillin AdvReac Rash/Hives Verified 06/06/20 22:04 Physical Exam Vitals: Vital Signs Temp Pulse Pulse Resp BP BP Pulse Ox 06/07/20 14:49 97.9 F 99 24 144/79 94 L 06/07/20 14:00 97.8 F 110 H 22 145/99 98 06/07/20 13:31 117 H 22 150/88 93 L 06/07/20 11:59 112 H 20 135/102 93 L 06/07/20 10:18 109 H 20 154/94 93 L 06/07/20 07:32 107 H 06/07/20 07:23 106 H 22 139/96 94 L 06/07/20 06:48 97.4 F L 112 H 26 H 161/122 93 L 06/07/20 02:30 112 H 06/07/20 02:00 114 H 150/83 06/07/20 01:30 111 H 185/117 06/07/20 01:00 120 H 184/115 06/07/20 00:30 120 H 143/100 06/07/20 00:00 120 H 181/110 06/06/20 23:30 121 H 146/111 06/06/20 23:22 118 H 146/111 06/06/20 23:00 197/112 06/06/20 22:30 122 H 181/108 92 L 06/06/20 22:00 138 H 190/121 93 L 06/06/20 21:45 190/121 06/06/20 21:30 138 H 199/127 93 L 06/06/20 21:00 135 H 199/127 93 L 06/06/20 20:30 135 H 199/127 94 L 06/06/20 20:00 142 H 199/127 95 06/06/20 19:52 144 H 26 H 199/127 96 06/06/20 19:03 98.5 F 146 H 24 162/107 93 L Intake and Output 06/07/20 06/07/20 06/07/20 06:59 14:59 22:59 Intake Total 250 Balance 250 Intake: Intake, IV Titration 100 Amount Magnesium Sulfate-D5w Pmx 100 1 gm In Dextrose/Water 1 100ml.bag @ 100 mls/hr IVPB Q1H [facility] Rx#: [id number] Oral 150 Other: Weight 113.398 kg Physical Exam: Revealed 40-year-old female in no distress. Pleasant, on room air. Head: Atraumatic, normocephalic. HEENT:[Neck is supple.] [No neck masses.] [No thyromegaly.] [No JVD.] Chest: [Symmetrical chest expansion, minimal crackles at the bases. No rhonchi and no wheezes. Cardiac Exam: [Normal S1 and S2, no S3 gallop, no murmur.] Abdomen: [Soft, nontender, no megaly, no rebound, no guarding, normal bowel sounds.] Extremities: [No clubbing, no edema, no cyanosis.] Neurological Exam: [No focal neurologic deficit.] Alert and oriented 3. Psychiatric: Normal mood affect and normal mental status examination. Skin: No rashes and no petechiae. Results - Laboratory Findings CBC and BMP: 06/07/20 10:04 06/07/20 10:04 PT/INR, D-dimer PT 10.0 sec (9.0-12.0) 06/06/20 20:04 INR 0.9 (<1.2) 06/06/20 20:04 D-Dimer 0.88 mg/L FEU (<0.60) H 06/07/20 10:04 Abnormal lab findings: Abnormal Labs 06/06/20 06/06/20 06/06/20 20:04 20:04 20:04 Hgb 10.4 L Hct MCV 74.4 L MCH 22.4 L MCHC 30.1 L RDW 17.6 H Neutrophils # 8.4 H APTT 21.1 L D-Dimer 1.07 H Sodium 136 L Glucose 203 H POC Glucose (mg/dL) Plasma Lactic Acid [place] Magnesium 1.2 L Lactate Dehydrogenase C-Reactive Protein 06/06/20 06/06/20 06/07/20 20:04 23:15 07:29 Hgb Hct MCV MCH MCHC RDW Neutrophils # APTT D-Dimer Sodium Glucose POC Glucose (mg/dL) 111 H Plasma Lactic Acid [place] 2.5 H* 3.7 H* Magnesium Lactate Dehydrogenase C-Reactive Protein 06/07/20 06/07/20 06/07/20 10:04 10:04 10:04 Hgb 9.8 L Hct 30.4 L MCV 73.5 L MCH 23.7 L MCHC RDW 17.8 H Neutrophils # APTT D-Dimer 0.88 H Sodium 134 L Glucose 154 H POC Glucose (mg/dL) Plasma Lactic Acid [place] Magnesium 1.3 L Lactate Dehydrogenase 304 L C-Reactive Protein 4.2 H 06/07/20 11:55 Hgb Hct MCV MCH MCHC RDW Neutrophils # APTT D-Dimer Sodium Glucose POC Glucose (mg/dL) 143 H Plasma Lactic Acid [place] Magnesium Lactate Dehydrogenase C-Reactive Protein - Diagnostic Findings CT scan - chest: image reviewed (As noted in HPI.) Assessment and Plan Assessment: Impression: Shortness of breath secondary to recent, subacute COVID-19 pneumonia. No evidence of thromboembolic disease. And no evidence of hypoxemia on room air. Type 2 diabetes. Morbid obesity. Benign essential hypertension. Recommendation: Patient will be cleared for PERSPECTIVE TO BE DISCHARGED HOME. Follow-up on outpatient basis. Consider placing the patient on a course of prednisone 30 mg burst and taper over the next 2 weeks only. Follow-up on outpatient basis. Time with Patient: Greater than 30
[2020-06-07 16:58] LABS: Glucose,Whole Blood 197 mg/dL (75-99)
[2020-06-07 20:35] LABS: Glucose,Whole Blood 156 mg/dL (75-99)
[2020-06-07] MEDS ORDERED: INSULIN DETEMIR (LEVEMIR) 100 UNIT/ML SYR SQ SCH (21:00)
[2020-06-07] MEDS ORDERED: PANTOPRAZOLE 40 MG TABLET PO SCH (21:00)
[2020-06-07] MEDS ORDERED: lisinopriL 5 MG TAB PO SCH (21:00)
[2020-06-07 21:36] VITALS: TEMP 97.6
[2020-06-08] MEDS: ACETAMINOPHEN TAB 325 MG TAB PO PRN (03:01)
[2020-06-08 03:40] VITALS: RESP 18
[2020-06-08 06:25] LABS: Glucose,Whole Blood 128 mg/dL (75-99)
[2020-06-08] MEDS: SODIUM CHLORIDE 0.9% 1,000 ML IV SCH (06:41)
[2020-06-08] MEDS: INSULIN ASPART (NovoLOG) 100 UNIT/ML VIAL SQ SCH ×2 (06:41→12:33)
[2020-06-08] MEDS: MULTIVITAMINS, THERA 1 EACH TAB PO SCH (09:03)
[2020-06-08] MEDS: FERROUS SULFATE 325 MG TAB PO SCH (09:03)
[2020-06-08] MEDS: METOPROLOL TARTRATE 50 MG TAB PO SCH (09:03)
[2020-06-08] MEDS: ARIPiprazole 5 MG TAB PO SCH (09:03)
[2020-06-08] MEDS: PARoxetine 20 MG TAB PO SCH ×2 (09:39)
--- NOTE | 2020-06-08 09:52 | P.PN ---
Subjective HISTORY OF PRESENT ILLNESS: This is a 40-year-old female with a past medical history significant for hypertension, diabetes, anxiety and depression. Patient does not follow with a call center specialist. We have been asked to see the patient in consultation for tachycardia and hypertension. Patient examined at the bedside in the emergency room. Patient states she has been feeling short of breath for approximately one week. She also reports having a cough for the past week. She denies having a fever but she does report having chills the other day. Patient states yesterday when she was walking to the bathroom or shortness of breath got worse which propped her to come to the emergency room. She denies chest pain or pressure. She does report some discomfort with deep breathing. Patient's blood pressure was noted to be elevated upon arrival to the emergency room with a systolic in the 190s. Patient was also tachycardic with a heart rate in the 140s. Patient is prescribed lisinopril on an outpatient basis. She is also prescribed clonidine which she states she uses most nights out of the week to help her sleep. Patient does not check her blood pressure at home. She denies any history of smoking or alcohol use. She denies a family history of coronary artery disease. 06/08 Patient seen and examined. Echo performed and awaiting read. Admits she is feeling better however much of her symptoms occur with exertion. No chest pain other than when she takes a deep breath in or coughs. Metoprolol 50mg bid was started yesterday. REVIEW OF SYSTEMS: At the time of my exam: CONSTITUTIONAL: Denies fever or chills. HEENT: Denies blurred vision, vision changes, or eye pain. Denies hemoptysis CARDIOVASCULAR: Denies chest pain. Denies orthopnea. Denies PND. Denies palpitations RESPIRATORY: Reports shortness of breath. Reports discomfort with deep inspiration. GASTROINTESTINAL: Denies abdominal pain. Denies nausea or vomiting. HEMATOLOGIC: Denies bleeding disorders. GENITOURINARY: Denies any blood in urine. SKIN: Denies pruitis. Denies rash. PHYSICAL EXAM: VITAL SIGNS: Reviewed. GENERAL: Well-developed in no acute distress. HEENT: Head is normocephalic. Pupils are equal, round. Sclerae anicteric. Mucous membranes of the mouth are moist. Neck supple. No JVD or thyromegaly LUNGS: Respirations even and unlabored. Lungs diminished bilaterally. HEART: Tachycardic. Regular rate and rhythm. S1 and S2 heard. ABDOMEN: Soft. Nondistended. Nontender. EXTREMITIES: Normal range of motion. No clubbing or cyanosis. Peripheral pulses intact. No lower extremity edema NEUROLOGIC: Awake and alert. Oriented x 3. ASSESSMENT: Covid 19 Shortness of breath, secondary to above Tachycardia Hypertension Diabetes Mellitus Anxiety Depression PLAN: Await 2-D echo read. If relatively normal, patient may be discharged home from a cardiology standpoint. We will increase Metoprolol to 100mg bid and Lisinopril to 20 mg daily. Followup in the office in 1-2 weeks. Objective - Vital Signs Vital signs: Vital Signs Temp 97.6 F 06/08/20 09:00 Pulse 98 06/08/20 09:00 Resp 18 06/08/20 09:00 BP 165/98 06/08/20 09:00 Pulse Ox 92 L 06/08/20 09:00 Intake & Output 06/07/20 06/08/20 06/08/20 18:59 06:59 18:59 Intake Total 730 400 Balance 730 400 Weight 113.398 kg 133 kg Intake: Intake, IV Titration 100 300 Amount Magnesium Sulfate-D5w Pmx 100 1 gm In Dextrose/Water 1 100ml.bag @ 100 mls/hr IVPB Q1H [facility] Rx#: [id number] Sodium Chloride 0.9% 1, 300 000 ml @ 75 mls/hr IV . [id number] [facility] Rx#:[id number] Oral 630 100 Other: Voiding Method Toilet # Voids 1 - Labs CBC & Chem 7: 06/07/20 10:04 06/07/20 10:04 Labs: Abnormal Lab Results - Last 24 Hours (Table) 06/07/20 06/07/20 06/07/20 Range/Units 10:04 10:04 10:04 Hgb 9.8 L (11.4-16.0) gm/dL Hct 30.4 L (34.0-46.0) % MCV 73.5 L (80.0-100.0) fL MCH 23.7 L (25.0-35.0) pg RDW 17.8 H (11.5-15.5) % D-Dimer 0.88 H (<0.60) mg/L FEU Sodium 134 L (137-145) mmol/L Glucose 154 H (74-99) mg/dL POC Glucose (mg/dL) (75-99) mg/dL Magnesium 1.3 L (1.6-2.3) mg/dL Lactate Dehydrogenase 304 L (313-618) U/L C-Reactive Protein 4.2 H (<1.0) mg/dL 06/07/20 06/07/20 06/07/20 Range/Units 11:55 16:47 20:34 Hgb (11.4-16.0) gm/dL Hct (34.0-46.0) % MCV (80.0-100.0) fL MCH (25.0-35.0) pg RDW (11.5-15.5) % D-Dimer (<0.60) mg/L FEU Sodium (137-145) mmol/L Glucose (74-99) mg/dL POC Glucose (mg/dL) 143 H 197 H 156 H (75-99) mg/dL Magnesium (1.6-2.3) mg/dL Lactate Dehydrogenase (313-618) U/L C-Reactive Protein (<1.0) mg/dL 06/08/20 Range/Units 06:24 Hgb (11.4-16.0) gm/dL Hct (34.0-46.0) % MCV (80.0-100.0) fL MCH (25.0-35.0) pg RDW (11.5-15.5) % D-Dimer (<0.60) mg/L FEU Sodium (137-145) mmol/L Glucose (74-99) mg/dL POC Glucose (mg/dL) 128 H (75-99) mg/dL Magnesium (1.6-2.3) mg/dL Lactate Dehydrogenase (313-618) U/L C-Reactive Protein (<1.0) mg/dL
[2020-06-08] MEDS ORDERED: METOPROLOL TARTRATE 50 MG TAB PO STA (10:07)
[2020-06-08 10:16] LABS: African American GFR (CKD) >90 (>60 ml/min/1.73 sqM); Anion Gap 8 mmol/L; Blood Urea Nitrogen 14 mg/dL (7-17); Calcium 8.9 mg/dL (8.4-10.2); Carbon Dioxide 24 mmol/L (22-30); Chloride 102 mmol/L (98-107); Glucose 146 mg/dL (74-99); Magnesium 1.7 mg/dL (1.6-2.3); Non-African American GFR(CKD) >90 (>60 ml/min/1.73 sqM); Potassium 4.6 mmol/L (3.5-5.1); Sodium 134 mmol/L (137-145)
[2020-06-08] MEDS ORDERED: Magnesium Replacement Protocol 1 EACH MISC MISCELLANE PRN (10:45)
[2020-06-08 11:34] LABS: Glucose,Whole Blood 149 mg/dL (75-99)
[2020-06-08 11:38] VITALS: BP 157/88; PULSE 87
[2020-06-08] MEDS: MAGNESIUM SULFATE-D5W PMX 1 GM in DEXTROSE/WATER 1 100ML.BAG IVPB SCH ×2 (11:39→13:01)
[2020-06-08 15:33] LABS: Ferritin 28.7 ng/mL (10.0-291.0)
--- NOTE | 2020-06-08 16:19 | P.PN ---
Subjective Progress Note Date: 06/08/20 Principal diagnosis: COVID-19 pneumonitis without hypoxia This is a 40-year-old female with history of multiple medical problems including hypertension, diabetes, patient has been ill for almost 3-4 weeks. She tested positive for COVID-19 infection on 05/11, and again on 05/26. Patient had full classic symptoms of COVID-19 infection including aches and pains, loss of sensation of taste and smell, diarrhea, cough, shortness of breath. Patient did not require hospital admission, she managed to do well over the last 3-4 weeks, patient presented to the ER yesterday with symptoms of shortness of breath on exertion. Continues to have intermittent episodes of cough, weakness, CT angiogram of the chest was negative for thromboembolic disease/pulmonary embolism, however it showed bilateral patchy infiltrates consistent with recent COVID-19 pneumonia. Patient was admitted, she has O2 sats of 94% on room air, doing well at rest, she has mostly shortness of breath on exertion. Patient was also noted to have elevated blood pressure and tachycardia, and that is being addressed by cardiology on the case. Pulmonary-[facility] the patient seems to be very comfortable, and not in any distress at present. Obviously the patient is out of the window for any of the treatments we use for COVID-19 infection, and as far as I'm concerned, the patient does not need to be in the hospital, she could be managed on outpatient basis knowing that she had no evidence of pulmonary embolism, and she is maintaining adequate O2 saturation on room air. Patient was reevaluated today on 06/08/2020, patient is feeling better, has no complaints, doing great, remains on room air, no cough no wheezing no shortness of breath except for some dyspnea on exertion. Patient was cleared to go home today. And I believe arrangements are being made for the patient to be discharged home. Remains on room air, labs were reviewed, Objective - Vital Signs Vital signs: Vital Signs Temp 97.6 F 06/08/20 09:00 Pulse 87 06/08/20 13:48 Resp 18 06/08/20 13:48 BP 157/88 06/08/20 11:38 Pulse Ox 94 L 06/08/20 11:38 Intake & Output 06/07/20 06/08/20 06/08/20 18:59 06:59 18:59 Intake Total 422 736 8155 Output Total 300 Balance 730 400 860 Weight 113.398 kg 133 kg Intake: Intake, IV Titration 100 300 300 Amount Magnesium Sulfate-D5w Pmx 100 300 1 gm In Dextrose/Water 1 100ml.bag @ 100 mls/hr IVPB Q1H SUE Rx#: [id number] Sodium Chloride 0.9% 1, 300 000 ml @ 75 mls/hr IV . [id number] SUE Rx#:[id number] Oral 630 100 860 Output: Urine 300 Other: Voiding Method Toilet Toilet # Voids 1 1 # Bowel Movements 1 - Exam Physical Exam: Revealed 40-year-old female in no distress. Pleasant, on room air. Head: Atraumatic, normocephalic. HEENT:[Neck is supple.] [No neck masses.] [No thyromegaly.] [No JVD.] Chest: [Symmetrical chest expansion, minimal crackles at the bases. No rhonchi and no wheezes. Cardiac Exam: [Normal S1 and S2, no S3 gallop, no murmur.] Abdomen: [Soft, nontender, no megaly, no rebound, no guarding, normal bowel sounds.] Extremities: [No clubbing, no edema, no cyanosis.] Neurological Exam: [No focal neurologic deficit.] Alert and oriented 3. Psychiatric: Normal mood affect and normal mental status examination. Skin: No rashes and no petechiae. - Labs CBC & Chem 7: 06/07/20 10:04 06/08/20 08:13 Labs: Abnormal Lab Results - Last 24 Hours (Table) 06/07/20 06/07/20 06/08/20 Range/Units 16:47 20:34 06:24 Sodium (137-145) mmol/L Glucose (74-99) mg/dL POC Glucose (mg/dL) 197 H 156 H 128 H (75-99) mg/dL 06/08/20 06/08/20 Range/Units 08:13 11:33 Sodium 134 L (137-145) mmol/L Glucose 146 H (74-99) mg/dL POC Glucose (mg/dL) 149 H (75-99) mg/dL Assessment and Plan Assessment: Impression: Shortness of breath secondary to recent, subacute COVID-19 pneumonia. No evidence of thromboembolic disease. And no evidence of hypoxemia on room air. Type 2 diabetes. Morbid obesity. Benign essential hypertension. Recommendation: A she was seen and evaluated, and I suggest discharging the patient home follow- up on outpatient basis. Follow-up on outpatient basis. prednisone 30 mg burst and taper over the next 2 weeks only. Plus the COVID-19 cocktail Follow-up on outpatient basis. Time with Patient: Less than 30
--- NOTE | 2020-06-08 16:50 | ECHOF ---
Referral Reason:LV function MEASUREMENTS -------- HEIGHT: 160.0 cm WEIGHT: 113.4 kg BP: 154/94 RVIDd: 3.3 cm (< 3.3) IVSd: 1.4 cm (0.6 - 1.1) LVIDd: 5.1 cm (3.9 - 5.3) LVPWd: 1.4 cm (0.6 - 1.1) IVSs: 2.0 cm LVIDs: 4.1 cm LVPWs: 1.7 cm LA Diam: 3.8 cm (2.7 - 3.8) LAESV Index (A-L): 27.10 ml/m Ao Diam: 3.6 cm (2.0 - 3.7) AV Cusp: 2.2 cm (1.5 - 2.6) MV EXCURSION: 21.866 mm (> 18.000) MV EF SLOPE: 162 mm/s (70 - 150) AV maxP.03 mmHg AV meanP.13 mmHg RAP: 5.00 mmHg RVSP: 47.10 mmHg FINDINGS -------- Resting tachycardia (HR>100bpm). This was a technically difficult study with suboptimal apical views. The left ventricular size is normal. There is moderate concentric left ventricular hypertrophy. O verall left ventricular systolic function is mild-moderately impaired with, an EF between 40 - 45 %. Basal inferior LV wall motion is hypokinetic. Basal inferoseptal LV wall motion is hypokinetic. The right ventricle is mildly enlarged. Normal LA size by volume 22+/-6 ml/m2. The right atrium is normal in size. There is mild aortic valve sclerosis. Peak/mean gradient across the Aortic Valve is 18.03mmHg / 8.1 3mmHg. Mild mitral annular calcification present. There is trace to mild mitral regurgitation. Mild tricuspid regurgitation present. There is moderate pulmonary hypertension. The right ventric ular systolic pressure, as measured by Doppler, is 47.10mmHg. The pulmonic valve was not well visualized. The aortic root size is normal. Normal inferior vena cava with normal inspiratory collapse consistent with estimated right atrial pre ssure of 5 mmHg. There is no pericardial effusion. CONCLUSIONS -------- 1. Resting tachycardia (HR>100bpm). 2. This was a technically difficult study with suboptimal apical views. 3. The left ventricular size is normal. 4. There is moderate concentric left ventricular hypertrophy. 5. Overall left ventricular systolic function is mild-moderately impaired with, an EF between 40 - 45 %. 6. Basal inferior LV wall motion is hypokinetic. 7. Basal inferoseptal LV wall motion is hypokinetic. 8. The right ventricle is mildly enlarged. 9. Normal LA size by volume 22+/-6 ml/m2. 10. There is mild aortic valve sclerosis. 11. Peak/mean gradient across the Aortic Valve is 18.03mmHg / 8.13mmHg. 12. Mild mitral annular calcification present. 13. There is trace to mild mitral regurgitation. 14. Mild tricuspid regurgitation present. 15. There is moderate pulmonary hypertension. 16. The right ventricular systolic pressure, as measured by Doppler, is 47.10mmHg. 17. There is no pericardial effusion. CONSULAR OFFICER: Yamilet Smart RDCS
[2020-06-08 20:48] LABS: Hemoglobin A1C 7.7 % (4.0-6.0)
[2020-06-08] MEDS ORDERED: lisinopriL 20 MG TAB PO SCH (21:00)
[2020-06-08] MEDS ORDERED: METOPROLOL TARTRATE 50 MG TAB PO SCH (21:00)
[2020-06-08] MEDS ORDERED: lisinopriL 10 MG TAB PO SCH (21:00)
--- NOTE | 2020-06-09 00:18 | P.DS ---
Providers Date of admission: 06/07/20 01:58 Attending physician: Kristina Okeefe Consults: 06/06/20 22:44 Consult Physician Urgent Consulting Provider: Yury Toscano Consult Reason/Comments: Tachycardia, hypertension Do you want consulting provider notified?: Yes 06/07/20 09:59 Consult Physician Routine Consulting Provider: Anuj Ward Consult Reason/Comments: covid pna Do you want consulting provider notified?: Yes Primary care physician: Nadege Hammond Hospital Course: Diagnoses: acute Bilateral interstitial pneumonia, mostly secondary to acute covid pneumonia Mild Acute hypoxic respiratory failure, patient saturating low 90s on room air. She does not need home oxygen upon discharge Hypertension, with urgency . Present on admission. Improved Diabetes Mellitus, type II Morbid obesity with BMI of 44.3 Hospital course: This is a pleasant 40 years old female with past medical history of diabetes mellitus, hypertension. She is a patient of Dr. Cesar, she follows up with see him in [place] for her mental health. She presents because of dyspnea especially with exertion for the last 1 week associated with a dry cough and more nasal congestion and sneezing but no sore throat. Patient treated symptomatically and evaluated by process operator cleared her for discharge, patient is in room air and does not qualify oxygen on exertion when evaluated. her High blood pressure and tachycardia on admission is better controlled with metoprolol 100 mg twice daily and increase lisinopril to 20 mg daily per mangle press catcher's recommendation. Patient remains asymptomatic today patient denies chest pain or dyspnea. No abdominal pain or nausea vomiting. No fever. No change in urine or bowel habits. Patient was cleared for discharge by process operator and mangle press catcher Problems and management plan were discussed with the patient and he verbalized understanding and acceptance Patient was found stable and can be discharged home however he needs follow-up as an outpatient. Patient was instructed to follow up with PCP Dr. Cesar within one week and patient agrees Patient was instructed to follow up with mangle press catcher Dr. Iverson in 1 week and she agrees to call and make her own appointment Physical exam Gen: patient is a AAOx3, no distress CVS: S1-S2, RRR, no murmur Lungs: B/L CTA, no wheezing Abdomen: soft, no distention, no tenderness, positive bowel sounds Extremity: no leg edema or induration Time spent more than 35 minutes Patient Condition at Discharge: Fair Plan - Discharge Summary New Discharge Prescriptions: New lisinopriL [Zestril] 20 mg PO HS #30 tab Metoprolol Tartrate [Lopressor] 100 mg PO BID #120 tab Continue Ferrous Sulfate [Iron (65 MG Elemental)] 325 mg PO DAILY ARIPiprazole [Abilify] 5 mg PO DAILY PARoxetine HCL [Paxil] 40 mg PO DAILY Pantoprazole [Protonix] 40 mg PO HS PARoxetine HCL [Paxil] 20 mg PO DAILY metFORMIN HCL [Glucophage] 1,000 mg PO BID-W/MEALS Insulin Glargine,Hum.rec.anlog [Lantus Solostar] 80 unit SQ HS Discontinued Multivitamins, Thera [Multivitamin (formulary)] 2 tab PO DAILY lisinopriL [Zestril] 5 mg PO HS cloNIDine HCL [Catapres] 0.1 mg PO HS PRN PRN Reason: Insomnia Discharge Medication List ARIPiprazole [Abilify] 5 mg PO DAILY 06/06/20 [History] Ferrous Sulfate [Iron (65 MG Elemental)] 325 mg PO DAILY 06/06/20 [History] Insulin Glargine,Hum.rec.anlog [Lantus Solostar] 80 unit SQ HS 06/06/20 [History] PARoxetine HCL [Paxil] 20 mg PO DAILY 06/06/20 [History] PARoxetine HCL [Paxil] 40 mg PO DAILY 06/06/20 [History] Pantoprazole [Protonix] 40 mg PO HS 06/06/20 [History] metFORMIN HCL [Glucophage] 1,000 mg PO BID-W/MEALS 06/06/20 [History] Metoprolol Tartrate [Lopressor] 100 mg PO BID #120 tab 06/08/20 [Rx] lisinopriL [Zestril] 20 mg PO HS #30 tab 06/08/20 [Rx] Follow up Appointment(s)/Referral(s): Manish Light MD [Primary Care Provider] - 1-2 days (Office will call you to schedule a telehealth visit. ) Maxime Iverson DO [STAFF PHYSICIAN] - 1 Week (Office will call you with appointment date & time. ) Patient Instructions/Handouts: Coronavirus Disease 2019 (COVID-19), Hypomagnesemia (DC) Activity/Diet/Wound Care/Special Instructions: . Discharge Disposition: HOME SELF-CARE
== END 2020-06-08 17:40 | disposition home or self-care (01) | DRG 177 ==
LOC: EC 18:18 → 3SCARD 06-07 01:58
PROVIDERS: ADMIT Hospitalist; ATTEND Hospitalist
DX: U07.1 COVID-19 (principal); J96.01 Acute respiratory failure with hypoxia; J12.82 Pneumonia due to coronavirus disease 2019; Z68.41 Body mass index [BMI] 40.0-44.9, adult; D64.9 Anemia, unspecified; E11.9 Type 2 diabetes mellitus without complications; E66.01 Morbid (severe) obesity due to excess calories; F32.9 Major depressive disorder, single episode, unspecified; F41.9 Anxiety disorder, unspecified; I10 Essential (primary) hypertension; I16.0 Hypertensive urgency; Z88.0 Allergy status to penicillin; R00.0 Tachycardia, unspecified; Z79.84 Long term (current) use of oral hypoglycemic drugs; Z79.899 Other long term (current) drug therapy
CPT/HCPCS: 36415; 71046; 71275; 80048; 80053; 82728; 83036; 83605; 83615; 83735; 83880; 84145; 84443; 84484; 84703; 85025; 85379; 85610; 85730; 86140; 93005; 93306; 96361; 96374; 96375; 99285

== ENCOUNTER → 2024-06-12 | Outpatient (CLI) | payer OTHER ==
--- NOTE | 2024-06-12 11:35 | MM ---
Reason for Exam: Screening (asymptomatic). Last mammogram was performed 2 year(s) and 2 month(s) ago. Patient History: Menarche at age 11. First Full-Term at age 23. Patient has history of breast feeding. Patient used Hormonal Contraceptives for 2 years. Risk Values: Quiana 5 year model risk: 0.9%. NCI Lifetime model risk: 10.5%. Prior Study Comparison: 04/04/2022 Bilateral MG 3D screening mammo w/cad, [facility]. Tissue Density: There are scattered areas of fibroglandular density. Findings: Analyzed By CAD. There is no suspicious group of microcalcifications or new suspicious mass in either breast. Overall Assessment: Negative, BI-RAD 1 Management: Screening Mammogram of both breasts in 1 year. . Patient should continue monthly self-breast exams. A clinical breast exam by your physician is recommended on an annual basis. This exam should not preclude additional follow-up of suspicious palpable abnormalities. Note on Quiana scores and lifetime risk: 1. A Quiana score greater than 3% is considered moderate risk. If this is the case, consider specialist referral to assess eligibility for a risk reducing agent. 2. If overall lifetime risk for the development of breast cancer is 20% or higher, the patient may qualify for future screening with alternating mammogram and breast MRI. [facility], , 06/12/2024 11:33 AM. Electronically signed and approved by: Darron Waterman M.D. Radiologis
== END | disposition home or self-care (01) ==
LOC: RADMAMWWP 11:24
PROVIDERS: ATTEND Internal Medicine Geriatric Medicine
DX: Z12.31 Encounter for screening mammogram for malignant neoplasm of breast (principal); R92.323 Mammographic fibroglandular density, bilateral breasts; Z92.0 Personal history of contraception
CPT/HCPCS: 77063; 77067

== ENCOUNTER → 2024-08-01 | Outpatient (CLI) | payer OTHER ==
[2024-08-01 13:13] LABS: Basophils # (A) 0.04 X 10*3/uL (0.00-0.10); Basophils % (A) 0.6 %; Eosinophils # (A) 0.26 X 10*3/uL (0.04-0.35); Eosinophils % (A) 3.7 %; HCT 38.7 % (37.2-46.3); Lymphocytes # (A) 2.15 X 10*3/uL (0.90-5.00); Lymphocytes % (A) 30.3 %; MCH 25.5 pg (27.0-32.0); MCV 82.3 FL (80.0-97.0); Monocytes # (A) 0.46 X 10*3/uL (0.20-1.00); Monocytes % (A) 6.5 %; NRBC Per 100 WBC 0 X 10*3/uL (0.00-0.01); Neutrophils # (A) 4.15 X 10*3/uL (1.80-7.70); Neutrophils % (A) 58.3 %; Platelet Count 260 X 10*3/uL (140-440); RDW 14.3 % (11.5-14.5)
[2024-08-01 13:32] LABS: ALT 14 U/L (8-44); AST 15 U/L (13-35); Albumin 4.1 g/dL (3.8-4.9); Albumin/Globulin Ratio 1.71 Ratio (1.60-3.17); Alkaline Phosphatase 69 U/L (41-126); BUN/Creat Ratio 24.25 Ratio (12.00-20.00); Blood Urea Nitrogen 29.1 mg/dL (9.0-27.0); Calcium 9.5 mg/dL (8.7-10.3); Carbon Dioxide 23.6 mmol/L (21.6-31.8); Chloride 99 mmol/L (96-109); Chol/HDL Ratio 2.57 Ratio; Globulin 2.4 g/dL (1.6-3.3); Glucose 146 mg/dL (70-110); LDL Cholesterol,Calculated 76.2 mg/dL (0.0-131.0); Potassium 4.8 mmol/L (3.5-5.5); Sodium 137 mmol/L (135-145); Total Bilirubin 0.2 mg/dL (0.3-1.2); Total Protein 6.5 g/dL (6.2-8.2)
[2024-08-01 13:45] LABS: Hepatitis B Surface Antigen Nonreactive (Nonreactive)
[2024-08-01 14:03] LABS: Hepatitis B Surface AB- Quant 3.5 mIU/mL
[2024-08-03 11:16] LABS: HIV-1 RNA Not detected (Not detected); HIV-1 RNA, Quant <20 Copies/mL (<20); LOG HIV Copies/mL <1.30 (<1.30)
[2024-08-03 19:02] LABS: ANA Pattern Speckled
== END | disposition home or self-care (01) ==
LOC: LABWHC1 09:51
PROVIDERS: ATTEND Physician Assistant
DX: L40.0 Psoriasis vulgaris (principal)
CPT/HCPCS: 36415; 80053; 80061; 85025; 86038; 86039; 86480; 86704; 86706; 87340; 87522; 87536